=== PATIENT | female | born 1960 | race Caucasian/White ===

== ENCOUNTER → 2018-10-15 | Outpatient (REF) ==
--- NOTE | 2018-10-15 14:35 | REP ---
RIGHT KNEE SERIES: Five views right knee performed. There is no acute fracture or dislocation. There is moderate medial joint space narrowing with subchondral sclerosis. There is mild lateral joint space narrowing. There is moderate diffuse spurring. There is mild chondrocalcinosis diffusely. A rounded calcific body is seen at the posterior margin of the joint approximately 4 mm in diameter. IMPRESSION: Moderate degenerative changes as above. Electronically Signed by Reece Lafleur MD 10/16/2018 10:55 A
== END ==
LOC: M SMT 11:49
PROVIDERS: ATTEND Internal Medicine
DX: M51.36 Other intervertebral disc degeneration, lumbar region (principal)

== ENCOUNTER → 2022-11-15 | Outpatient (CLI) | payer BC, MEDICARE | LOC: M RAD 15:47 | PROVIDERS: ATTEND Internal Medicine Pulmonary Disease | DX: R91.1 Solitary pulmonary nodule (principal) ==

== ENCOUNTER 2023-01-29 12:14 | Day surgery (SDC) | payer MEDICARE ==
[~2023-01-29] VITALS: Ht 147.3 cm; Wt 71.7 kg
[~2023-01-29 12:14] MED LIST: ANOR1AER IN; ASPI81TA26 PO; ATOR1TAB21 PO; CYMB60CA4 PO; GABA-282 PO; GABA600T4 PO; HYDR-4429 PO; KETO2SHA8 TOP; MELO15TA28 PO; METO1TAB32 PO; MOME13HF4 IN; NS 1,000 ML IV ONE; OMEP40CA4 PO; PROA1AER2 INH; PROBCAP14 PO; WELLTAB38 PO
[2023-01-29 13:21] VITALS: TEMP 98.4
[2023-01-29 13:52] VITALS: BP 127/69; O2SAT 96
== END 2023-01-29 14:03 | disposition home or self-care (01) ==
LOC: M OPP 12:14
PROVIDERS: ATTEND Internal Medicine Gastroenterology
DX: K22.89 Other specified disease of esophagus (principal); K44.9 Diaphragmatic hernia without obstruction or gangrene; K22.70 Barrett's esophagus without dysplasia; R93.3 Abnormal findings on diagnostic imaging of other parts of digestive tract; F17.290 Nicotine dependence, other tobacco product, uncomplicated; Z79.02 Long term (current) use of antithrombotics/antiplatelets; Z79.1 Long term (current) use of non-steroidal anti-inflammatories (NSAID); Z79.51 Long term (current) use of inhaled steroids; Z79.82 Long term (current) use of aspirin; Z79.891 Long term (current) use of opiate analgesic; Z88.0 Allergy status to penicillin; Z88.1 Allergy status to other antibiotic agents; Z88.2 Allergy status to sulfonamides; Z88.5 Allergy status to narcotic agent; Z88.6 Allergy status to analgesic agent

== ENCOUNTER → 2023-05-09 | Outpatient (CLI) | payer MEDICARE ==
[~2023-05-09] MED LIST changes: -NS 1,000 ML IV ONE
== END ==
LOC: M PLAIMG 12:41
PROVIDERS: ATTEND Internal Medicine Pulmonary Disease
DX: R91.1 Solitary pulmonary nodule (principal)

== ENCOUNTER → 2023-09-10 | Outpatient (CLI) | payer MEDICARE | LOC: M RAD 12:16 | PROVIDERS: ATTEND Internal Medicine Pulmonary Disease | DX: R91.8 Other nonspecific abnormal finding of lung field (principal) ==

== ENCOUNTER → 2024-10-08 | Outpatient (CLI) | payer MEDICARE, BC ==
[~2024-10-08] MED LIST changes: +GABA-1172 PO; +GABA-1490 PO; -GABA-282 PO; -GABA600T4 PO
== END ==
LOC: M RAD 12:27
PROVIDERS: ATTEND Internal Medicine Pulmonary Disease
DX: Z12.2 Encounter for screening for malignant neoplasm of respiratory organs (principal); F17.218 Nicotine dependence, cigarettes, with other nicotine-induced disorders

== ENCOUNTER → 2025-04-12 | Outpatient (CLI) | payer MEDICARE ==
[~2025-04-12] MED LIST changes: +KETO120S5 TOP; -KETO2SHA8 TOP
== END ==
LOC: M PLAIMG 11:12
PROVIDERS: ATTEND Internal Medicine Pulmonary Disease
DX: R91.8 Other nonspecific abnormal finding of lung field (principal)

== ENCOUNTER → 2025-06-10 | Outpatient (REF) | payer MEDICARE ==
[2025-06-10 14:20] LABS: CREATININE FOR GFR 0.53 MG/DL (0.55-1.30); GLOMERULAR FILTRATION RATE > 90.0 (>45)
== END ==
LOC: M LAB REF 12:48
PROVIDERS: ATTEND Internal Medicine Pulmonary Disease
DX: J43.1 Panlobular emphysema (principal)

== ENCOUNTER → 2025-06-15 | Outpatient (CLI) | payer MEDICARE ==
[~2025-06-15] MED LIST changes: +ISOVUE-370 76% 100 ML VIAL ONE
== END ==
LOC: M PLAIMG 09:16
PROVIDERS: ATTEND Internal Medicine Pulmonary Disease
DX: J96.01 Acute respiratory failure with hypoxia (principal); R91.1 Solitary pulmonary nodule; K44.9 Diaphragmatic hernia without obstruction or gangrene
CPT/HCPCS: 71275; Q9967